=== PATIENT | female | born 1975 ===

== ENCOUNTER 2023-10-29 12:01 | Emergency (ER) | payer BC ==
[~2023-10-29] VITALS: Ht 162.6 cm; Wt 90.7 kg
[2023-10-29] MEDS ORDERED: ASPIRIN EC81 MG PO (12:42)
[2023-10-29] MEDS ORDERED: PEPCID20 MG PO (14:14)
[2023-10-29 14:47] VITALS: PULSE 70; RESP 17; TEMP 100; O2SAT 98
== END 2023-10-29 14:47 | disposition home or self-care (01) ==
LOC: FSED 12:10 → ER 14:47
DX: R07.89 Other chest pain (principal)
CPT/HCPCS: 71046; 80048; 82553; 84484; 85025; 93005; 99284